=== PATIENT | female | born 1955 | race Caucasian/White ===

== ENCOUNTER 2017-11-03 09:52 | Emergency (ER) | payer OTHER ==
[2017-11-03] MEDS: predniSONE 20 MG TAB PO (12:18)
[2017-11-03] MEDS: IPRATROPIUM (NEB) 0.5 MG/2.5 ML AMP NEB (12:21)
[2017-11-03] MEDS: ALBUTEROL 0.083% (NEB) 2.5 MG/3 ML AMP NEB (12:22)
== END 2017-11-03 13:48 | disposition home or self-care (01) ==
LOC: FTE 09:52
DX: J06.9 Acute upper respiratory infection, unspecified (principal); R06.02 Shortness of breath
CPT/HCPCS: 71045; 87400; 93005; 94664; 99285-25